=== PATIENT | female | born 1965 | race Caucasian/White ===

== ENCOUNTER 2019-09-05 10:39 | Emergency (ER) | payer MEDICAID ==
[~2019-09-05] VITALS: Ht 167.6 cm; Wt 69.7 kg
[~2019-09-05 10:39] MED LIST: ALBU8.5H5 INH; DIAZ5TAB4 PO; ENAL10TA PO; HYDR-3237 PO; IBUP-1223 PO; OXYC-302 PO; PROP80TA PO; SITA100T PO; SYMBICORT INH; ZOLP10TA PO
[2019-09-05 10:42] VITALS: BP 144/87
== END 2019-09-05 11:34 | disposition home or self-care (01) ==
LOC: ED 11:32
DX: T16.2XXA Foreign body in left ear, initial encounter (principal); X58.XXXA Exposure to other specified factors, initial encounter; Y93.89 Activity, other specified; Y92.89 Other specified places as the place of occurrence of the external cause; Y99.8 Other external cause status
CPT/HCPCS: 69200; 99281; 99282; 99284

== ENCOUNTER 2019-11-04 10:08 | Emergency (ER) | payer MEDICAID ==
[~2019-11-04] VITALS: Ht 167.6 cm; Wt 69.1 kg
[2019-11-04 10:09] VITALS: BP 126/75
[2019-11-04] MEDS ORDERED: OXYcodone/APAP 5/325MG TABLET ONE (10:55)
[2019-11-04] MEDS ORDERED: OXYcodone/APAP 5/325MG TABLET PO ONE (11:00)
== END 2019-11-04 11:09 | disposition home or self-care (01) ==
LOC: ED 10:43
DX: S60.470A Other superficial bite of right index finger, initial encounter (principal); I10 Essential (primary) hypertension; W54.0XXA Bitten by dog, initial encounter; Y93.89 Activity, other specified; Y92.830 Public park as the place of occurrence of the external cause; Y99.8 Other external cause status
CPT/HCPCS: 99283

== ENCOUNTER 2020-02-20 11:34 | Inpatient (IN) | payer MEDICAID, OTHER ==
[~2020-02-20] VITALS: Ht 167.6 cm; Wt 73.0 kg
[~2020-02-20 11:34] MED LIST changes: -ENAL10TA PO; +ENAL10TA9 PO
--- NOTE | 2020-02-20 11:50 | NUR ---
JENNY BOBO IN CUSTODY ON ARRIVAL. PT FOUND "UNRESPONSIVE" AT RETIREMENT "FOR A BREIF TIME". PT FSBG FOUND TO BE 51 PT GIVEN 65MG D50. LAST BLOOD GLUCOSE 95 PRIOR TO ENTERING FOR EMS. PT ALSO WITH C/O GARDNER/DIZZINESS X 2 DAYS. PT TO ALL MONITORS AT THIS TIME, 2 GUARDS AT BEDSIDE PT WITH SHACKLES IN PLACE. ERMD IN TO EVAL PT, AWAITING ORDERS
--- NOTE | 2020-02-20 12:00 | NUR ---
Ronit crawford in EDM - 02/20/20 at 1317 by ASHISH PER PREVIOUS RN PT ON 86% ON RA, PT PLACED ON 4L TO MAINTAIN SATS 95-97%
[2020-02-20 12:28] LABS: MEAN CORPUSCULAR HEMOGLOBIN 30.1 pg (27.0-34.8); PLATELET COUNT 305 x10^3/uL (130-400); RED BLOOD COUNT 5.19 x10^6/uL (3.82-5.3); RED CELL DISTRIBUTION WIDTH 13.2 % (9.6-15.2)
[2020-02-20] MEDS ORDERED: DEXTROSE 10% 1,000 ML IV SCH (12:30)
[2020-02-20] MEDS ORDERED: SODIUM CHLORIDE FLUSH 10ML SYR IVF ONE (12:30)
[2020-02-20 12:40] LABS: ALANINE AMINOTRANSFERASE 34 U/L (12-78); ALBUMIN 4.3 g/dL (3.4-5.0); ANION GAP 8 mmol/L (5-15); CALCIUM 9.8 mg/dL (8.5-10.1); CHLORIDE 104 mmol/L (98-107); CREATININE 0.67 mg/dL (0.55-1.02)
[2020-02-20 12:42] LABS: ALKALINE PHOSPHATASE 74 U/L (45-117); BILIRUBIN,TOTAL 0.8 mg/dL (0.2-1.0); TOTAL PROTEIN 8.3 g/dL (6.4-8.2)
[2020-02-20 12:43] LABS: AMPHETAMINE SCREEN, URINE Negative (Negative); BARBITURATE SCREEN, URINE Negative (Negative); BENZODIAZEPINE SCREEN, URINE Negative (Negative); CANNABINOID SCREEN, URINE Negative (Negative); COCAINE SCREEN, URINE Negative (Negative); METHADONE SCREEN, URINE Negative (Negative); OPIATE SCREEN, URINE Negative (Negative)
[2020-02-20 12:49] LABS: MD YES
[2020-02-20 12:51] LABS: BAND#(MANUAL) 2.08 x10^3/uL; BANDS%(MANUAL) 7 % (0-7); EOS#(MANUAL) 0.89 x10^3/uL (0.0-0.4); EOS% (MANUAL) 3 % (1-7); LYMPH#(MANUAL) 3.86 x10^3/uL (1-3.4); LYMPHS% (MANUAL) 13 % (22-44); MONOS#(MANUAL) 2.38 x10^3/uL (0.3-2.7); MONOS% (MANUAL) 8 % (2-9); SEG#(MANUAL) 20.49 x10^3/uL (1.8-6.8); SEGS% (MANUAL) 69 % (42-75)
[2020-02-20] MEDS ORDERED: DEXTROSE 50%, 50ML SYRINGE ONE (12:51)
[2020-02-20 12:52] LABS: <PLATELET ESTIMATE> ADEQUATE; <RBC MORPHOLOGY> NORMAL; LARGE PLATELETS 1+
[2020-02-20] MEDS ORDERED: DEXTROSE 50%, 50ML VIAL IVPush ONE (13:00)
--- NOTE | 2020-02-20 13:11 | NUR ---
LATE ENTRY D/T PT CARE: D10 ADMIN PER ERMD FOR REPEAT BS 64. PT SHORTLY LATER BECAME DIAPHORETIC AND EYES OPEN BUT NOT RESPONSIVE TO VOICE, NOT FOLLOWING COMMANDS. RECHECK BS 44, ERMD UPDATED ADDITIONAL ORDERS RECIEVED. PT AWAKE POST D50 ADMIN AND ANSWERING QUESTIONS, WILL CTM CLOSELY. NEWS CORRESPONDENT MADE AWARE. THIS RN SPOKE WITH NEWS CORRESPONDENT AT [facility], PT DID RECIEVE 30UNITS LANTUS THIS AM. ERMD UPDATED
--- NOTE | 2020-02-20 13:36 | NUR ---
BREAK RN NOTE : PT BACK FROM CT, REPEAT FINGERSTICK 156 . PT A&OX4 ,RESPS EVEN AND UNLABORED. D10 INFUSING. GAURDS AT BEDSIDE X2.
--- NOTE | 2020-02-20 13:45 | NUR ---
LAB PAGED TO RUN UA OFF OF URINE IN LAB.
[2020-02-20 14:20] LABS: MICROSCOPIC AUTO
[2020-02-20] MEDS ORDERED: CEFTRIAXONE PMX 1GM/50ML 50 ML IV ONE (15:30)
[2020-02-20] MEDS ORDERED: CEFTRIAXONE PMX 1GM/50ML 50 ML ONE (16:10)
--- NOTE | 2020-02-20 16:26 | NUR ---
ADMITTING MD IN , REPORT CALLED TO RECIEVING RN
[2020-02-20] MEDS ORDERED: CEFTRIAXONE PMX 1GM/50ML 50 ML IV SCH (16:30)
[2020-02-20] MEDS ORDERED: ONDANSETRON 2MG/ML, 2ML IVPush PRN (17:00)
[2020-02-20] MEDS ORDERED: DOCUSATE 100 MG CAPSULE PO PRN (17:00)
[2020-02-20] MEDS ORDERED: ACETAMINOPHEN 325 MG TABLET PO PRN (17:00)
[2020-02-20] MEDS ORDERED: BISACODYL 10 MG SUPP PR PRN (17:00)
[2020-02-20] MEDS ORDERED: POTASSIUM CHLORIDE 20 MEQ TAB.ER.PRT PO ONE (17:00)
[2020-02-20] MEDS ORDERED: POLYETHYLENE GLYCOL 17 GM PACKET PO PRN (17:00)
[2020-02-20] MEDS: HEPARIN 5,000 UNITS/ML, 1ML SQ SCH (18:04)
[2020-02-20 18:50] VITALS: BP 111/73
[2020-02-20] MEDS ORDERED: ALBUTEROL HFA 90 MCG/SPRAY INH PRN (21:00)
[2020-02-20] MEDS ORDERED: TRAZODONE 50MG TABLET PO ONE (23:00)
[2020-02-21 01:08] VITALS: BP 105/66
[2020-02-21] MEDS: HEPARIN 5,000 UNITS/ML, 1ML SQ SCH ×3 (01:10→17:20)
[2020-02-21 06:03] LABS: ALBUMIN 3.2 g/dL (3.4-5.0); ANION GAP 7 mmol/L (5-15); CALCIUM 8.7 mg/dL (8.5-10.1); CHLORIDE 105 mmol/L (98-107)
[2020-02-21 06:15] LABS: ALANINE AMINOTRANSFERASE 41 U/L (12-78); ALKALINE PHOSPHATASE 60 U/L (45-117); BILIRUBIN,TOTAL 0.4 mg/dL (0.2-1.0); CREATININE 0.76 mg/dL (0.55-1.02); TOTAL PROTEIN 6.6 g/dL (6.4-8.2)
[2020-02-21 06:56] LABS: BASOPHILS % (AUTO) 1 % (0-1); EOSINOPHILS % (AUTO) 5 % (1-7); LYMPHOCYTES % (AUTO) 39 % (22-44); MEAN CORPUSCULAR HEMOGLOBIN 30.9 pg (27.0-34.8); MEAN CORPUSCULAR HGB CONC 34.9 g/dL (32.4-35.8); MEAN PLATELET VOLUME 10.4 fL (7.4-10.4); MONOCYTES % (AUTO) 8 % (2-9); NEUTROPHILS % (AUTO) 48 % (42-75); PLATELET COUNT 219 x10^3/uL (130-400); RED BLOOD COUNT 4.19 x10^6/uL (3.82-5.3)
[2020-02-21 07:17] LABS: MD NO
[2020-02-21 07:47] VITALS: BP 115/72
[2020-02-21] MEDS: INSULIN GLARGINE 100 UNITS/ML, PEN SQ-INSULIN SCH (10:14)
[2020-02-21] MEDS: FLUTICASONE/VILANTEROL 100-25MCG/INH INH SCH (11:14)
[2020-02-21] MEDS ORDERED: DEXTROSE 10% 1,000 ML IV SCH (12:30)
[2020-02-21 13:01] VITALS: BP 124/78
[2020-02-21] MEDS: INSULIN LISPRO 100 UNITS/ML, PEN SQ-INSULIN SCH ×3 (14:04→19:50)
[2020-02-21] MEDS ORDERED: CEFTRIAXONE PMX 1GM/50ML 50 ML IV SCH (16:00)
[2020-02-21 19:15] VITALS: BP 158/82
[2020-02-21] MEDS: TRAZODONE 50MG TABLET PO PRN ×2 (19:50→22:06)
[2020-02-21 20:43] VITALS: BP 161/90
[2020-02-22 02:38] VITALS: BP 146/87
[2020-02-22] MEDS: HEPARIN 5,000 UNITS/ML, 1ML SQ SCH ×2 (02:39→08:55)
[2020-02-22 05:32] LABS: ANION GAP 7 mmol/L (5-15); CALCIUM 8.8 mg/dL (8.5-10.1); CHLORIDE 106 mmol/L (98-107); CREATININE 0.59 mg/dL (0.55-1.02)
[2020-02-22 07:57] VITALS: BP 126/84
[2020-02-22] MEDS: INSULIN LISPRO 100 UNITS/ML, PEN SQ-INSULIN SCH (08:59)
[2020-02-22] MEDS: FLUTICASONE/VILANTEROL 100-25MCG/INH INH SCH (09:00)
[2020-02-22] MEDS: INSULIN GLARGINE 100 UNITS/ML, PEN SQ-INSULIN SCH (09:00)
[2020-02-22] MEDS ORDERED: INSU100V8 SQ (09:39)
[2020-02-22] MEDS ORDERED: CEFD300C37 PO (09:42)
== END 2020-02-22 11:16 | disposition home or self-care (01) | DRG 638 ==
LOC: ED 15:05 → EDIP 16:42 → 4WST 17:00
PROVIDERS: ADMIT Emergency Medicine; ATTEND Emergency Medicine
DX: E11.649 Type 2 diabetes mellitus with hypoglycemia without coma (principal); N39.0 Urinary tract infection, site not specified; Z88.8 Allergy status to other drugs, medicaments and biological substances; I10 Essential (primary) hypertension; J44.9 Chronic obstructive pulmonary disease, unspecified; Z87.891 Personal history of nicotine dependence; E87.6 Hypokalemia
CPT/HCPCS: 36415; 70450; 71045; 80048; 80053; 80307; 81001; 82962; 83036; 83605; 83735; 84100; 84145; 84443; 85025; 87040; 87086; 93005; 94640; 96374; 99291; G0378; J0696; J1644; J1815